=== PATIENT | male | born 1970 | race Caucasian/White ===

== ENCOUNTER 2024-03-22 02:56 | Emergency (ER) | payer OTHER, SELFPAY ==
[2024-03-22 03:00] VITALS: BP 148/100
--- NOTE | 2024-03-22 03:24 | ED.GENMED ---
History of Present Illness
General
Chief Complaint: Headache
Source: patient
Exam Limitations: none
Time Seen by Provider: 03/22/24 03:08
Nursing documentation reviewed up to this point in time: agreed with
Travel History
Have you had any contact with someone who has COVID-19?: No
Do you have any symptoms of coronavirus? Fever > 100 degrees, chills, cough, shortness of breath, sore throat, loss of taste or smell, muscle aches, or headache?: No
History of Present Illness
History of Present Illness:
This is a 53-year-old gentleman who has history of GERD, chronically maintained on Prilosec. He also notes at least 2-year history of sporadic intermittent left temporal pain that comes and goes generally every couple weeks but usually resolves
within a few hours to half a day. He has been following with a neurologist and underwent reportedly unremarkable MRI 2 months ago. Has been prescribed as needed medications for left temporal pain which thus far have been ineffective but he does
note that pain generally resolves within a few hours. No associated symptoms, no vision difficulty, no nausea or vomiting, no neck pain, no nasal congestion or ear pain. No definitive aggravating nor relieving factors. He denies pain with local
palpation of his scalp.
He notes mild left temporal pain that began this morning, persistent and worse since 7 PM tonight and he took 1 oxycodone tablet with initially no relief of pain but currently admits that pain is markedly improved near resolved.
Oxycodone was an old prescription of his 's.
He has not trialed Tylenol nor NSAID.
He denies rash.
He has driven himself to the ED.
Past History
Past History
ED Past Medical History: GERD and Other (Intermittent left temporal pain/migraine headache)
ED Past Surgical History: Other (Sinus surgery)
Social History
Tobacco: Non-smoker
Personal:
Living: with family
Family History
Family History: Other (Noncontributory)
Phy Exam
Physical Exam
Physical Exam:
GENERAL: 53-year-old gentleman appears mildly older than stated age, bright and alert, pleasant, easily communicative and appears in no acute distress.
EYE: pupils equally round, anicteric. No palpable scalp tenderness. No scalp rash.
NECK: Supple, nontender, no meningismus, no significant adenopathy.
ENT: posterior pharynx is clear, oral mucosa is moist. TM clear b/l, nares patent.
CARDIAC: Regular rate and rhythm. no murmur.
LUNGS: Clear breath sounds bilaterally, no acute respiratory distress, no wheezes/rales/rhonchi
ABDOMEN: Soft, nondistended, without focal tenderness
NEUROLOGICAL: Alert and oriented x3, no focal neuro deficits. Gait is edward and steady.
SKIN: Warm and dry, normal color, skin intact. No rash.
MUSCULOSKELETAL: No C/C/E. peripheral pulses are full and equal b/l. No palpable tenderness.
PSYCH: Normal and appropriate interaction.
Course
Orders/Labs/Results
Orders:
Orders
03/22/24 03:23
Ketorolac [Toradol] 60 mg IM NOW STA
Vital Signs
Initial and Last Documented VS:
Initial Vital Signs
Temp Pulse Resp BP Pulse Ox
98.6 F 87 17 148/100 96
03/22/24 03:00 03/22/24 03:00 03/22/24 03:00 03/22/24 03:00 03/22/24 03:00
Last Documented Vital Signs
Temp Pulse Resp BP Pulse Ox
98.6 F 77 18 130/85 97
03/22/24 03:00 03/22/24 03:39 03/22/24 03:39 03/22/24 03:39 03/22/24 03:39
MDM/Problems Addressed
Differential Diagnosis Includes:
Intermittent left distal temporal pain, ongoing but intermittent over the past 2 years. Generally resolves in less than 12 hours thus temporal arteritis is much less likely.
Reports unremarkable MRI of the brain 2 months ago.
Overall appears comfortable, admits that pain is resolving.
Concern for focal tension headache, focal migraine, focal neuralgia.
Will trial an IM dose of Toradol.
At this point no indication for laboratory studies nor imaging.
*Pulse Oximetry
Patient hypoxic: no
*Critical Care Note
Total Time (30-74mins, 75-104mins- exclusive of procedures): Not Applicable
Update Note
Update Note:
03/22/2024 0419 AM
Patient sleeping upon reevaluation.
Reports complete relief of left temporal head pain.
Will discharge to home with recommendations for follow-up with neurology.
Return precautions discussed.
ED Attending Note
-
Portions of this chart may have been created with voice recognition software.� Occasional wrong word or��sound alike� substitutions may have occurred due to the inherent limitations of voice recognition software.
Discharge Plan
Departure
Patient Disposition: Home (Routine Discharge)
Date of Disposition: 03/22/24
Time of Disposition: 04:19
Patient with high blood pressure during this ER visit?: No
Condition: Good
Discharge Problem:
Left temporal headache
Instructions: Migraines (DC), Headache, Adult (DC)
Referrals:
Emilie Underwood, DO [Active] - Call in 1-3 days for appt
Interventions
Interventions:
*Risk Screen - Suicide Last Done: 03/22/24 03:00
*General Assessment Last Done: 03/22/24 03:00
*Neglect/Abuse Screening Last Done: 03/22/24 03:00
ED- Fall Risk Assessment Last Done: 03/22/24 03:00
*ED COVID-19 Vaccine History Last Done: 03/22/24 03:00
ED- Neurological Assessment Last Done: 03/22/24 03:38
Discharge Date and Time
Print Language: BHUTANESE
[2024-03-22] MEDS: TORADOL 60 MG IM (03:32)
[2024-03-22 03:39] VITALS: BP 130/85
== END 2024-03-22 04:37 | disposition home or self-care (01) ==
LOC: EMR 02:56
PROVIDERS: EMERGENCY PHYSICIAN Emergency Medicine; FAMILY PHYSICIAN Internal Medicine
DX: R51.9 Headache, unspecified (principal); K21.9 Gastro-esophageal reflux disease without esophagitis; Z79.899 Other long term (current) drug therapy; Z88.0 Allergy status to penicillin
CPT/HCPCS: 99284; 96372